=== PATIENT | male | born 1990 | race Caucasian/White ===

== ENCOUNTER 2018-07-07 17:27 | Emergency (ER) | payer OTHER ==
[~2018-07-07] VITALS: Ht 160 cm; Wt 53.6 kg
[~2018-07-07 17:27] MED LIST: D-ME118S6 PO; GABA600T PO; IBUP-1542 PO; INSU100C SC; LANT3I SC; ONDA4TAB8 PO
[2018-07-07 17:30] VITALS: Ht 160 cm; Wt 53.6 kg
[2018-07-07] MEDS ORDERED: SOD CHLORIDE 0.9% 1,000 ML IV STA (17:54)
[2018-07-07] MEDS ORDERED: ONDANSETRON 4 MG INJ IV STA (17:54)
[2018-07-07] MEDS ORDERED: FAMOTIDINE 20 MG INJ IV ONE (18:00)
--- NOTE | 2018-07-07 18:13 | ERD ---
ER Documentation Chief Complaint Chief Complaint CP and nausea started this AM - pt not in distress HPI 28 year old male history of insulin dependent diabetes mellitus presents with moderate bilateral chest pain that is nonradiating, achy since this morning. Patient denies any shortness of breath, fevers cough. Patient admits to having nausea. Denies vomiting diarrhea abdominal pain. Patient states last meal was last night and he ate hot vomiting. Patient is on Lantus and Humalog, last primary care visit was about 2 months ago. ROS All systems reviewed and are negative except as per history of present illness. Medications Home Meds Active Scripts Famotidine* (Pepcid*) 20 Mg Tablet, 20 MG PO DAILY for 4 Days, #15 TAB Prov:ALDO STERLING PA-C 07/07/18 Dextromethorphan Hb-Promethazine Hcl (Promethazine DM Syrup) 180 Ml Syrup, 5 ML PO Q6H PRN for COUGH, #4 OZ Prov:PHUONG REED 08/23/15 Ondansetron Hcl* (Zofran*) 4 Mg Tablet, 4 MG PO Q6H for NAUSEA AND/OR VOMITING, #30 TAB Prov:PHUONG REED C 08/23/15 Ibuprofen* (Motrin*) 600 Mg Tab, 600 MG PO Q6, #30 TAB Prov:BRIANNADESPHUONG C 08/23/15 Ibuprofen* (Motrin*) 600 Mg Tab, 600 MG PO Q8 for PAIN AND/OR INFLAMMATION, #30 Prov:RENU DIAZ MD 05/29/15 Ondansetron Hcl* (Zofran*) 4 Mg Tablet, 4 MG PO Q6H for NAUSEA AND/OR VOMITING, #30 TAB Prov:RENU DIAZ MD 05/29/15 Reported Medications Insulin Lispro (Humalog) 100 U/Ml Cartridge, 12 UNITS SC WITH MEALS, EA 05/29/15 Insulin Glargine* (Lantus*) 100 Unit/Ml Soln, 25 UNIT SC HS, EA 05/29/15 Gabapentin* (Neurontin*) 600 Mg Tablet, 600 MG PO QHS, TAB 05/29/15 Allergies Allergies: Coded Allergies: No Known Allergy (Verified , 05/29/15) PMhx/Soc History of Surgery: No Anesthesia Reaction: No Hx Neurological Disorder: No Hx Respiratory Disorders: No Hx Cardiac Disorders: No Hx Psychiatric Problems: No Hx Miscellaneous Medical Probl: Yes (dm 1) Hx Alcohol Use: No Hx Substance Use: No Hx Tobacco Use: No Physical Exam Vitals Vital Signs Date Temp Pulse Resp B/P (MAP) Pulse Ox O2 O2 Flow FiO2 Time Delivery Rate 07/07/18 97.8 82 20 156/97 99 17:30 (116) Physical Exam Const: No acute distress Head: Atraumatic Eyes: Normal Conjunctiva ENT: Normal External Ears, Nose and Mouth. Neck: Full range of motion. No meningismus. Resp: Clear to auscultation bilaterally Cardio: Regular rate and rhythm, no murmurs Abd: Soft, non tender, non distended. Normal bowel sounds Skin: No petechiae or rashes Back: No midline or flank tenderness Ext: No cyanosis, or edema Neur: Awake and alert Psych: Normal Mood and Affect Result Diagram: 07/07/18181007/07/18 181 Results 24 hrs Laboratory Tests Test 07/07/18 18:09 07/07/18 18:11 07/07/18 18:20 07/07/18 19:02 Bedside Glucose 419 mg/dL 361 mg/dL White Blood 9.0 10^3/ul Count Red Blood Count 4.31 10^6/ul Hemoglobin 11.7 g/dl Hematocrit 34.8 % Mean 80.7 fl Corpuscular Volume Mean 27.1 pg Corpuscular Hemoglobin Mean 33.6 g/dl Corpuscular Hemoglobin Conc ent Red Cell 12.1 % Distribution Width Platelet Count 173 10^3/UL Mean Platelet 12.3 fl Volume Immature 0.100 % Granulocytes % Neutrophils % 53.3 % Lymphocytes % 32.2 % Monocytes % 4.9 % Eosinophils % 7.9 % Basophils % 1.6 % Nucleated Red 0.0 /100WBC Blood Cells % Immature 0.010 10^3/ul Granulocytes # Neutrophils # 4.8 10^3/ul Lymphocytes # 2.9 10^3/ul Monocytes # 0.4 10^3/ul Eosinophils # 0.7 10^3/ul Basophils # 0.1 10^3/ul Nucleated Red 0.0 10^3/ul Blood Cells # Sodium Level 139 mmol/L Potassium Level 4.8 mmol/L Chloride Level 103 mmol/L Carbon Dioxide 29 mmol/L Level Anion Gap 7 Blood Urea 20 mg/dl Nitrogen Creatinine 1.14 mg/dl Est Glomerular > 60 mL/min Filtrat Rate mL/min Glucose Level 449 mg/dl Calcium Level 9.3 mg/dl Total Bilirubin 0.1 mg/dl Direct 0.00 mg/dl Bilirubin Indirect 0.1 mg/dl Bilirubin Aspartate Amino 31 IU/L Transf (AST/SGO T) Alanine 40 IU/L Aminotransferas e (ALT/SGPT) Alkaline 90 IU/L Phosphatase Troponin I < 0.012 ng/ml Total Protein 7.1 g/dl Albumin 3.9 g/dl Globulin 3.20 g/dl Albumin/Globuli 1.21 n Ratio Lipase 228 U/L Urine Color STRAW Urine Clarity CLEAR Urine pH 6.0 Urine Specific 1.023 [place] Urine Ketones NEGATIVE mg/dL Urine Nitrite NEGATIVE mg/dL Urine Bilirubin NEGATIVE mg/dL Urine NEGATIVE mg/dL Urobilinogen Urine Leukocyte NEGATIVE Justin/ul Esterase Urine 8 /HPF Microscopic RBC Urine 0 /HPF Microscopic WBC Urine 2+ mg/dL Hemoglobin Urine Glucose 3+ mg/dL Urine Total 2+ mg/dl Protein Test 07/07/18 20:03 07/07/18 21:38 Bedside Glucose 274 mg/dL 94 mg/dL Current Medications Medications Dose Sig/Sivakumar Start Time Status Last (Trade) Ordered Route PRN Stop Time Admin Dose Reason Admin Sodium 1,000 ml @ Q1H STAT 07/07/18 DC 07/07/18 Chloride 1,000 mls/hr IV 17:54 18:07 07/07/18 18:53 Famotidine 20 mg ONCE ONCE 07/07/18 DC 07/07/18 (Pepcid Iv) IV 18:00 18:07 07/07/18 18:01 Ondansetron 4 mg ONCE STAT 07/07/18 DC 07/07/18 HCl (Zofran IV 17:54 18:07 Inj) 07/07/18 17:56 Sodium 1,000 ml @ Q1H ONCE 07/07/18 DC 07/07/18 Chloride 1,000 mls/hr IV 19:00 18:55 07/07/18 19:59 Insulin 10 unit ONCE ONCE 07/07/18 DC 07/07/18 Human SC 19:00 19:16 Regular 07/07/18 (Humulin R) 19:01 Procedures/MDM 28-year-old male history of insulin-dependent diabetes mellitus presents with chest pain nausea since this morning. Patient was found to have hyperglycemia of glucose level of 419 without any evidence of DKA or hyperosmolar state. Glucose was stabilized in the emergency department with fluid resuscitation and regular insulin of 10 units IM. There was no evidence of ACS or other acute c ardiopulmonary conditions at this time. EKG did not show any evidence of STEMI. Troponin is negative. Patient has a low heart score. Chest x-ray did not show any infiltrates pneumothorax pleural effusion. Patient was given Pepcid and Zofran, his nausea symptoms have resolved. Patient is instructed to follow-up with his primary care physician to get follow-up with his diabetes. Return precautions have been given he understands and agrees this plan EKG: read and signed off by myself and Rate/Rhythm: Normal Sinus Rhythm 79bpm QRS, ST, T-waves: No changes consistent w/ acute ischemia Impression: No evidence of ischemia or arrhythmia Departure Diagnosis: Primary Impression: Chest pain Additional Impression: Hyperglycemia due to type 1 diabetes mellitus Condition: Stable ALDO STERLING PA-C Jul 07, 2018 18:13
[2018-07-07] MEDS ORDERED: INSULIN REGULAR, HUMAN 100 UNIT/1 ML 3ML VIAL SC ONE (19:00)
[2018-07-07] MEDS ORDERED: SOD CHLORIDE 0.9% 1,000 ML IV ONE (19:00)
[2018-07-07] MEDS ORDERED: FAMO-96 PO (19:21)
[2018-07-07 21:43] VITALS: BP 130/82; PULSE 70; RESP 20
== END 2018-07-07 21:40 | disposition home or self-care (01) ==
LOC: FTE 17:27
DX: R07.9 Chest pain, unspecified (principal); E11.65 Type 2 diabetes mellitus with hyperglycemia; R11.0 Nausea; Z79.4 Long term (current) use of insulin
CPT/HCPCS: 71045; 80053; 81001; 82962; 83690; 84484; 85025; 93005; 96372; 96374; 96375; J1815; J2405; J7030; Z7502; Z7610

== ENCOUNTER 2018-11-08 11:49 | Emergency (ER) | payer OTHER ==
[~2018-11-08] VITALS: Wt 53.3 kg
[~2018-11-08 11:49] MED LIST changes: +FAMO-96 PO
[2018-11-08] MEDS ORDERED: HYDROmorphONE 1 MG/ML SYG IV STA (12:34)
[2018-11-08] MEDS ORDERED: SOD CHLORIDE 0.9% 2,000 ML IV STA (12:34)
[2018-11-08] MEDS ORDERED: ONDANSETRON 4 MG INJ IV STA (12:34)
--- NOTE | 2018-11-08 13:16 | ERD ---
ER Documentation Chief Complaint Chief Complaint right head pain,cp, hx dm on insulin HPI This is a 28-year-old male with a history of diabetes who is insulin-dependent and noncompliant. He is complaining today that he has a right temporal headache that is throbbing with photophobia and worse with position change, no phonophobia. The patient said he threw up this morning a few times that was nonbilious nonbloody and after that developed some burning in his chest. He has had some polyuria but no weight loss. No fever. ROS All systems reviewed and are negative except as per history of present illness. Medications Home Meds Reported Medications Insulin Lispro (Humalog Kwikpen) 200 Unit/1 Ml Insuln.pen, 10 UNIT SQ AC A, EA ADMELOG 11/08/18 Insulin Glargine,Hum.rec.anlog (Basaglar Kwikpen U-100) 100 Unit/1 Ml Insuln.pen, 25 UNIT SC QHS, EA 11/08/18 Atorvastatin Calcium* (Atorvastatin Calcium*) 20 Mg Tablet, 20 MG PO QHS, #30 TAB 11/08/18 Gabapentin* (Gabapentin*) 600 Mg Tablet, 600 MG PO QHS, #60 TAB 11/08/18 Discontinued Reported Medications Insulin Lispro (Humalog) 100 U/Ml Cartridge, 12 UNITS SC WITH MEALS, EA 05/29/15 Insulin Glargine* (Lantus*) 100 Unit/Ml Soln, 25 UNIT SC HS, EA 05/29/15 Gabapentin* (Neurontin*) 600 Mg Tablet, 600 MG PO QHS, TAB 05/29/15 Discontinued Scripts Famotidine* (Pepcid*) 20 Mg Tablet, 20 MG PO DAILY for 4 Days, #15 TAB Prov:ALDO SETRLING PA-C 07/07/18 Dextromethorphan Hb-Promethazine Hcl (Promethazine DM Syrup) 180 Ml Syrup, 5 ML PO Q6H PRN for COUGH, #4 OZ Prov:PHUONG REED C 08/23/15 Ondansetron Hcl* (Zofran*) 4 Mg Tablet, 4 MG PO Q6H for NAUSEA AND/OR VOMITING, #30 TAB Prov:BRIANNAPHUONG C 08/23/15 Ibuprofen* (Motrin*) 600 Mg Tab, 600 MG PO Q6, #30 TAB Prov:PHUONG REED Cara 08/23/15 Ibuprofen* (Motrin*) 600 Mg Tab, 600 MG PO Q8 for PAIN AND/OR INFLAMMATION, #30 Prov:RENU DIAZ MD 05/29/15 Ondansetron Hcl* (Zofran*) 4 Mg Tablet, 4 MG PO Q6H for NAUSEA AND/OR VOMITING, #30 TAB Prov:RENU DIAZ MD 05/29/15 Allergies Allergies: Coded Allergies: No Known Allergy (Verified , 11/08/18) PMhx/Soc History of Surgery: No Anesthesia Reaction: No Hx Neurological Disorder: No Hx Respiratory Disorders: No Hx Cardiac Disorders: No Hx Psychiatric Problems: No Hx Miscellaneous Medical Probl: Yes (dm 1) Hx Alcohol Use: No Hx Substance Use: No Hx Tobacco Use: No FmHx Family History: No coronary disease Physical Exam Vitals Vital Signs Date Temp Pulse Resp B/P (MAP) Pulse Ox O2 O2 Flow FiO2 Time Delivery Rate 11/08/18 74 18 145/94 100 Room Air 14:00 (111) 11/08/18 82 20 146/93 99 Room Air 13:00 (110) 11/08/18 98.4 96 18 147/90 99 11:52 (109) Physical Exam Const: Well-developed, well-nourished Head: Atraumatic, normocephalic Eyes: Normal Conjunctiva, PERRLA, EOMI, normal sclera, no nystagmus ENT: Normal External Ears, Nose and Mouth, moist mucus membranes. Neck: Full range of motion. No meningismus, no lymphadenopathy. Resp: Clear to auscultation bilaterally, no wheezing, rhonchi, rales Cardio: Regular rate and rhythm, no murmurs, S1 S2 present Abd: Soft, non tender x 4, non distended. Normal bowel sounds, no guarding or rebound, no pulsitile abdominal masses or bruits Skin: No petechiae or rashes, no ecchymosis , no maculopapular rash Back: No midline or flank tenderness Ext: No cyanosis, or edema, FROM x 4, normal inspection, neurovascularly intact x 4 Neur: Awake and alert, STR 5/5 x 4, sensation intact x 4, no focal findings, cerebellum intact Psych: Normal Mood and Affect Result Diagram: 11/08/18 1246 11/08/18 1246 Results 24 hrs Laboratory Tests Test 11/08/18 12:25 11/08/18 12:46 Bedside Glucose 349 mg/dL White Blood Count 14.6 10^3/ul Red Blood Count 3.84 10^6/ul Hemoglobin 10.5 g/dl Hematocrit 31.3 % Mean Corpuscular Volume 81.5 fl Mean Corpuscular Hemoglobin 27.3 pg Mean Corpuscular Hemoglobin Concent 33.5 g/dl Red Cell Distribution Width 12.0 % Platelet Count 184 10^3/UL Mean Platelet Volume 12.2 fl Immature Granulocytes % 0.600 % Neutrophils % 79.6 % Lymphocytes % 10.5 % Monocytes % 7.6 % Eosinophils % 0.9 % Basophils % 0.8 % Nucleated Red Blood Cells % 0.0 /100WBC Immature Granulocytes # 0.090 10^3/ul Neutrophils # 11.6 10^3/ul Lymphocytes # 1.5 10^3/ul Monocytes # 1.1 10^3/ul Eosinophils # 0.1 10^3/ul Basophils # 0.1 10^3/ul Nucleated Red Blood Cells # 0.0 10^3/ul Urine Color COLORLESS Urine Clarity CLEAR Urine pH 5.0 Urine Specific [place] 1.009 Urine Ketones NEGATIVE mg/dL Urine Nitrite NEGATIVE mg/dL Urine Bilirubin NEGATIVE mg/dL Urine Urobilinogen NEGATIVE mg/dL Urine Leukocyte Esterase NEGATIVE Justin/ul Urine Microscopic RBC 4 /HPF Urine Microscopic WBC 1 /HPF Urine Bacteria FEW /HPF Urine Hemoglobin 2+ mg/dL Urine Glucose 3+ mg/dL Urine Total Protein 2+ mg/dl Sodium Level 135 mmol/L Potassium Level 4.7 mmol/L Chloride Level 107 mmol/L Carbon Dioxide Level 21 mmol/L Anion Gap 7 Blood Urea Nitrogen 14 mg/dl Creatinine 1.19 mg/dl Est Glomerular Filtrat Rate mL/min > 60 mL/min Glucose Level 356 mg/dl Calcium Level 9.1 mg/dl Total Bilirubin 0.3 mg/dl Direct Bilirubin 0.00 mg/dl Indirect Bilirubin 0.3 mg/dl Aspartate Amino Transf (AST/SGOT) 18 IU/L Alanine Aminotransferase (ALT/SGPT) 29 IU/L Alkaline Phosphatase 105 IU/L Total Protein 6.8 g/dl Albumin 3.2 g/dl Globulin 3.60 g/dl Albumin/Globulin Ratio 0.88 Current Medications Medications Dose Sig/Sivakumar Start Time Status Last (Trade) Ordered Route PRN Stop Time Admin Dose Reason Admin Sodium 2,000 ml @ Q1H STAT 11/08/18 DC 11/08/18 Chloride 2,000 mls/hr IV 12:34 11/08/18 13:01 13:33 1 mg ONCE STAT 11/08/18 DC 11/08/18 Hydromorphone IV 12:34 11/08/18 13:00 HCl 12:37 (Dilaudid) Ondansetron 4 mg ONCE STAT 11/08/18 DC 11/08/18 HCl (Zofran IV 12:34 11/08/18 13:00 Inj) 12:37 Procedures/MDM Patient: SHAHZAD WAN : 1990 Age: 28 Sex: M MR #: [id number] DOS: 11/08/18 1234 Ordering MD: ALLYSSA QUICK DO Location: E/R Room/Bed: PROCEDURE: XR Chest. CLINICAL INDICATION: chest pain hyperglycemia TECHNIQUE: Single frontal view of the chest was obtained COMPARISON: CR CHEST 05/29/2015 FINDINGS: The heart and mediastinum are within normal limits. The lungs are clear. There is no pleural effusion or pneumothorax. RPTAT: AA IMPRESSION: No acute disease. .Edson Hoang MD, MD Date Time Electronically viewed and signed by .Edson Hoang MD, MD on 11/08/2018 13:56 .S/ CC: ALLYSSA QUICK DO [id number] EKG: Rate/Rhythm: Normal Sinus Rhythm,NL intervals QRS, ST, QT: NORMAL MD, QRS, QT] Impression: NORMAL EKG This patient is not in DKA as he has frequently been in the past. Also has an elevated sugar. We did give him some fluids to help bring down his sugar. Discussed with him that needs to be more compliant. His chest pain was a bu rning pain after vomiting so this is likely esophagitis or irritation of the esophagus. He is feeling better at this time. We will treat symptomatically Departure Diagnosis: Primary Impression: Esophagitis Additional Impression: Hyperglycemia Condition: Stable ALLYSSA QUICK DO November 08, 2018 13:16
[2018-11-08] MEDS ORDERED: GABA-526 PO (13:35)
[2018-11-08] MEDS ORDERED: ATOR20TA38 PO (13:35)
[2018-11-08] MEDS ORDERED: INSU100I33 SC (13:36)
[2018-11-08] MEDS ORDERED: INSU200I SQ (13:39)
[2018-11-08] MEDS ORDERED: LIDOCAINE/MYLANTA 40 ML BTL PO STA (14:17)
[2018-11-08] MEDS ORDERED: RANI150T35 PO (14:18)
[2018-11-08] MEDS ORDERED: ONDA4TAB14 PO (14:18)
[2018-11-08] MEDS ORDERED: HYDR-3980 PO (14:44)
[2018-11-08 14:50] VITALS: BP 138/89; PULSE 74; RESP 16
== END 2018-11-08 14:54 | disposition home or self-care (01) ==
LOC: E/R 11:49
DX: K20.9 Esophagitis, unspecified (principal); E10.65 Type 1 diabetes mellitus with hyperglycemia; Z79.4 Long term (current) use of insulin
CPT/HCPCS: 36415; 71045; 80053; 81001; 82962; 85025; 93005; 96361; 96374; 96375; J1170; J2405; J7030; Z7502; Z7610